=== PATIENT | female | born 1975 | race Caucasian/White ===

== ENCOUNTER 2019-02-09 11:24 | Emergency (ER) | payer BC, OTHER ==
[2019-02-09 11:38] VITALS: TEMP 98.1
--- NOTE | 2019-02-09 11:57 | PDOC ---
History of Present Illness - General Chief Complaint: Head/Neck problem Stated Complaint: HEADACHE/RIGHT ARM PAIN/NECK Time Seen by Provider: 02/09/19 11:57 - History of Present Illness Initial Comments: 02/09/19 12:15 43 year old woman with a history of prior headaches and HTN who presents with headache and shoulder pain for 2 weeks. The patient denies any nausea, vomiting , visual symptoms, worsening of headache with loud noises or bright lights. The patient has been taking Tylenol for symptom relief. The patient presents because of worsening symptoms for 3 days. SHe reports she had a 30min episode of R shoulder numbness that self resolved and was not associated with weakness or any other symptoms. ROS GENERAL/CONSTITUTIONAL: No fever or chills. No weakness. HEAD, EYES, EARS, NOSE AND THROAT: No change in vision. No ear pain or discharge. No sore throat. CARDIOVASCULAR: No chest pain or shortness of breath RESPIRATORY: No cough, wheezing, or hemoptysis. GASTROINTESTINAL: No nausea, vomiting, diarrhea or constipation. GENITOURINARY: No dysuria, frequency, or change in urination. MUSCULOSKELETAL: + joint or muscle swelling or pain. No neck or back pain. SKIN: No rash NEUROLOGIC: + headache, No vertigo, loss of consciousness, or change in strength /sensation. PE GENERAL: Awake, alert, and fully oriented, in no acute distress HEAD: No signs of trauma, normocephalic, atraumatic EYES: PERRLA, EOMI, sclera anicteric, conjunctiva clear ENT: oropharynx clear without exudates. Moist mucosa NECK: Normal ROM, supple LUNGS: No distress, speaks full sentences, clear to auscultation bilaterally HEART: Regular rate and rhythm, normal S1 and S2, no murmurs, rubs or gallops, peripheral pulses normal and equal bilaterally. ABDOMEN: Soft, nontender. No guarding, no rebound. No masses BACK: tenderness to trapezious muscles R > L EXTREMITIES : Normal inspection, Normal range of motion, no edema. No clubbing or cyanosis. NEUROLOGICAL: Cranial nerves II through XII grossly intact. Normal speech, normal gait, no focal sensorimotor deficits SKIN: Warm, Dry, normal turgor, no rashes or lesions noted MDM DDX including but not limited to: migraine msk ED Course: Patient denies taking medications regularly, however records show enalapril and noncompliance may explain elevated bp will dose home meds cbc, cmp, ua,upreg treat symptomatically Lulu De La O, PGY2 Emergency Medicine Past History - Past Medical History Allergies/Adverse Reactions: Allergies Allergy/AdvReac Type Severity Reaction Status Date / Time No Known Allergies Allergy Verified 02/09/19 11:29 Home Medications: Ambulatory Orders NK [No Known Home Medication] 02/09/19 - Surgical History Abdominal Surgery: Yes (myomectomy) - Immunization History Immunization Up to Date: Yes - Psycho Social/Smoking Cessation Hx Smoking Status: Yes Smoking History: Unknown if ever smoked Have you smoked in the past 12 months: No Number of Cigarettes Smoked Daily: 0 Hx Alcohol Use: No Drug/Substance Use Hx: No Substance Use Type: None *Physical Exam - Vital Signs Last Vital Signs Temp Pulse Resp BP Pulse Ox 98.1 F 113 H 16 190/109 H 100 02/09/19 11:29 02/09/19 11:29 02/09/19 11:29 02/09/19 11:29 02/09/19 11:29 ED Treatment Course - LABORATORY CBC & Chemistry Diagram: 02/09/19 12:43 02/09/19 12:43 Discharge - Discharge Information Problems reviewed: Yes Clinical Impression/Diagnosis: Headache, Muscle pain Disposition: HOME - Admission No - Follow up/Referral Referrals: Katheryn Wright MD [Primary Care Provider] - Anson Richmond MD, FAANS [Staff Physician] - - Patient Discharge Instructions Patient Printed Discharge Instructions: DI for Headache, DI for Muscle Strain Additional Instructions: You were seen for headache and muscle pain You need to take your blood pressure medication which has been prescribed to you You should follow up with your Family Doctor for further blood pressure medication You have been prescribed blood pressure medications and muscle relaxants Use epsom salt bath and soak for muscle pain. You have a referral for neurology if your symptoms do not improve Return to the ED if you have worsening symptoms, headache, fevers, nausea or vomiting or any other concerning symptoms. - Post Discharge Activity
[2019-02-09] MEDS ORDERED: LIDOCAINE 5% TOPICAL PATCH TP ONE (12:10)
[2019-02-09] MEDS ORDERED: ACETAMINOPHEN 1000 MG/100 ML VIAL (NON FORMULARY) IVPB ONE (12:10)
[2019-02-09] MEDS ORDERED: METOCLOPRAMIDE HCL INJECTION 10 MG/2 ML VIAL IVPUSH ONE (12:10)
--- NOTE | 2019-02-09 12:12 | PDOC ---
Attending Attestation - Resident Resident Name: Lulu De La O - ED Attending Attestation I have performed the following: I have examined & evaluated the patient, The case was reviewed & discussed with the resident, I agree w/resident's findings & plan, Exceptions are as noted - HPI HPI: 02/09/19 13:00 43yo female with hx of headaches - never seen neurology states malagon intermittently x 3 weeks assoc with 2 weeks of neck pain. States she turned to talk with her 2 weeks ago and felt her neck instantly develop pain. States she feels her muscles hurt and she can't turn her neck without pain. Pt denies midline pain. States yesterday she felt the pain down her R arm when she would turn her neck. Pt with parapsinal ttp along scalene muscles on the R and the trapezius muscle on the R. Also states a malagon that feels like a band around her head. Has taken tylenol at home with 30-45 min of relief. Pt denies muscle weakness. No blurred vision, no change in vision. No paresthesias. Pt denies cp. States she does not have known htn - but bp is elevated today. States she has never taken vasotec in the past. 02/09/19 13:04 Pt has had a hysterectomy in the past. - Physicial Exam PE: 02/09/19 13:04 gen: aaox3, uncomfortable, cannot turn her head to the Right, in pain heent: EOMI, MMM neck: no midline ttp, R parapsinal ttp, R trapezius ttp, R scalene ttp that reproduces her pain heart: +s1s2 reg lungs: cta b/l abd: soft, obese, nt/nd Ext: no c/c/e, muscle strength UE and LE neuro: cn ii-xii grossly intact, muscle strength 5/5 ue and le, ambulated with a steady gait, sensation intact - Medical Decision Making 02/09/19 13:11 a/p: 43yo female with R parapsinal neck pain and malagon x 2-3 weeks -no new focal neuro findings -suspect muscle spasm causing neck pain and tension malagon -will send labs given pt hypertensive, but suspect bp elevated secondary to acute pain -will obtain ekg -will medicate for pain and muscle spasm, will monitor and reassess 02/09/19 13:32 pt states feeling some pain relief upreg neg added toradol and robaxin renal function normal bp improving with pain control 02/09/19 14:23 bp improving pain improving 02/09/19 14:55 pt ambulatory without distress feels better FROM of the cervical spine stable for dc to home malagon resolved bp improved Heart Score/ECG Review - ECG Intrepretation Comment:: 02/09/19 13:30 sinus at 81, nl axis, nl interval, no acute st/t wave findings
[2019-02-09] MEDS ORDERED: SODIUM CHLORIDE 1,000 ML IV SCH (12:15)
[2019-02-09] MEDS ORDERED: ENALAPRIL MALEATE 2.5 MG TABLET (FP) PO ONE (12:16)
[2019-02-09] MEDS ORDERED: METOCLOPRAMIDE HCL INJECTION 10 MG/2 ML VIAL ONE (12:35)
[2019-02-09] MEDS ORDERED: ENALAPRIL MALEATE 5 MG TABLET (FP) ONE (12:35)
[2019-02-09] MEDS ORDERED: ACETAMINOPHEN INJECTION 100 ML IVPB ONE (12:36)
[2019-02-09] MEDS ORDERED: LIDOCAINE 5% TOPICAL PATCH ONE (12:57)
[2019-02-09 13:10] LABS: ALBUMIN 3.8 g/dl (3.4-5.0); BILIRUBIN,TOTAL 0.3 mg/dL (0.2-1); BLOOD UREA NITROGEN 8.6 mg/dL (7-18); CALCIUM 9.1 mg/dL (8.5-10.1); CREATININE 0.7 mg/dL (0.55-1.3); POTASSIUM 3.9 mmol/L (3.5-5.1); TOT PROT 7.8 g/dl (6.4-8.2)
[2019-02-09] MEDS ORDERED: METHOCARBAMOL 500 MG TABLET PO ONE (13:13)
[2019-02-09] MEDS ORDERED: KETOROLAC TROMETHAMINE 30 MG/1 ML VIAL IVPUSH ONE (13:13)
[2019-02-09 13:17] LABS: BASO % 0.8 % (0-2.0); EOS % 1.4 % (0-4.5); HEMATOCRIT 40.6 % (32.4-45.2); HEMOGLOBIN 14.1 GM/dL (10.7-15.3); LYMPH % 25.6 % (8-40); MCH 30.3 pg (25.7-33.7); MCHC 34.7 g/dl (32.0-36.0); MEAN CELL VOLUME 87.3 fl (80-96); MONO % 6.2 % (3.8-10.2); RBC 4.65 M/mm3 (3.60-5.2)
[2019-02-09] MEDS ORDERED: METHOCARBAMOL 500 MG TABLET ONE (13:56)
[2019-02-09] MEDS ORDERED: KETOROLAC TROMETHAMINE 30 MG/1 ML VIAL ONE (13:56)
[2019-02-09 14:15] VITALS: BP 154/91; PULSE 87
[2019-02-09 15:51] LABS: WHITE BLOOD COUNT 13.5 K/mm3 (4.0-10.0)
[2019-02-09 15:52] LABS: PLATELET ESTIMATE ADEQUATE
[2019-02-09] MEDS ORDERED: LIDOCAINE PATCH REMOVAL MC SCH (22:00)
--- NOTE | 2019-02-11 10:25 | EKG ---
Test Reason : Blood Pressure : / mmHG Vent. Rate : 081 BPM Atrial Rate : 081 BPM P-R Int : 170 ms QRS Dur : 082 ms QT Int : 396 ms P-R-T Axes : 030 012 045 degrees QTc Int : 460 ms NORMAL SINUS RHYTHM NORMAL ECG WHEN COMPARED WITH ECG OF 07-SEP-2015 01:24, NO SIGNIFICANT CHANGE WAS FOUND Confirmed by YUNG CALVERT MD ([id number]) on 02/11/2019 10:24:35 AM Referred By: Confirmed By:YUNG CALVERT MD
== END 2019-02-09 15:14 | disposition home or self-care (01) ==
LOC: JER 11:24
PROC: 3E033NZ Introduction of Analgesics, Hypnotics, Sedatives into Peripheral Vein, Percutaneous Approach (ICD-10-PCS; principal; 2019-02-09)
PROC: 3E0333Z Introduction of Anti-inflammatory into Peripheral Vein, Percutaneous Approach (ICD-10-PCS; 2019-02-09)
PROC: 3E033GC Introduction of Other Therapeutic Substance into Peripheral Vein, Percutaneous Approach (ICD-10-PCS; 2019-02-09)
DX: R51 Headache (principal); M79.18 Myalgia, other site; I10 Essential (primary) hypertension
CPT/HCPCS: 36415; 80053; 84703; 85025; 93005; 93010; 99282-25; J0131; J7030

== ENCOUNTER 2021-04-11 18:25 | Emergency (ER) | payer BC, OTHER ==
[2021-04-11 19:28] VITALS: TEMP 98.3; BMI 36.8
[2021-04-11] MEDS ORDERED: morphine CARPU-JECT 4 MG/1 ML DISP.SYRIN IVPUSH ONE (20:50)
[2021-04-11 20:59] LABS: BASO % 0.6 % (0-2.0); EOS % 1.4 % (0-4.5); HEMATOCRIT 40.1 % (32.4-45.2); HEMOGLOBIN 13.3 GM/dL (10.7-15.3); LYMPH % 27.4 % (8-40); MCH 28.7 pg (25.7-33.7); MCHC 33.2 g/dl (32.0-36.0); MEAN CELL VOLUME 86.3 fl (80-96); MEAN PLT VOLUME 9.4 fl (7.5-11.1); MONO % 6.7 % (3.8-10.2); NEUT % 63.9 % (42.8-82.8); PLATELET COUNT 307 10^3/uL (134-434); RBC 4.65 M/mm3 (3.60-5.2); RDW 12.7 % (11.6-15.6); WHITE BLOOD COUNT 11.5 K/mm3 (4.0-10.0)
[2021-04-11 21:11] LABS: INR 1.01 (0.83-1.09); PROTHROMBIN TIME (PATIENT) 11.3 SEC (9.7-13.0)
[2021-04-11 21:14] LABS: ACTIVATED PTT 28.7 SECONDS (25.2-36.5)
[2021-04-11] MEDS ORDERED: morphine SULFATE 4 MG/ML VIAL ONE (21:14)
[2021-04-11 21:48] LABS: ALBUMIN 3.9 g/dl (3.4-5.0); CALCIUM 8.9 mg/dL (8.5-10.1)
[2021-04-11 21:49] LABS: BLOOD UREA NITROGEN 9.4 mg/dL (7-18)
[2021-04-11 21:52] LABS: CREATININE 0.7 mg/dL (0.55-1.3)
[2021-04-11 21:52] LABS: EPI CELLS >36 /uL (0-25.1); HYALINE CASTS 2 /uL (0-3.1); URINE APPEARANCE CLOUDY; URINE BACTERIA 1064 /uL (0-1359); URINE BILIRUBIN NEGATIVE (NEGATIVE); URINE COLOR YELLOW; URINE GLUCOSE (UA) NEGATIVE (NEGATIVE); URINE KETONE NEGATIVE (NEGATIVE); URINE LEUK ESTERASE TRACE (NEGATIVE); URINE NITRITE NEGATIVE (NEGATIVE); URINE PROTEIN NEGATIVE (NEGATIVE); URINE RBC 66 /uL (0-23.9); URINE UROBILINOGEN 0.2 mg/dL (0.2-1.0); URINE WBC 32 /uL (0-25.8)
[2021-04-11 21:53] LABS: BILIRUBIN,TOTAL 0.2 mg/dL (0.2-1); TOT PROT 7.8 g/dl (6.4-8.2)
[2021-04-11 22:27] LABS: HCG,QUALITATIVE URINE Negative
[2021-04-12 00:16] LABS: EPI CELLS >36 /uL (0-25.1); HYALINE CASTS 3 /uL (0-3.1); PH,URINE 5.5 (5.0-8.0); URINE APPEARANCE CLEAR; URINE BACTERIA 722 /uL (0-1359); URINE BILIRUBIN NEGATIVE (NEGATIVE); URINE COLOR YELLOW; URINE GLUCOSE (UA) NEGATIVE (NEGATIVE); URINE KETONE NEGATIVE (NEGATIVE); URINE LEUK ESTERASE NEGATIVE (NEGATIVE); URINE NITRITE NEGATIVE (NEGATIVE); URINE PROTEIN NEGATIVE (NEGATIVE); URINE RBC 16 /uL (0-23.9); URINE UROBILINOGEN 0.2 mg/dL (0.2-1.0)
[2021-04-12 01:25] VITALS: BP 154/95; PULSE 91
== END 2021-04-12 01:26 | disposition home or self-care (01) ==
LOC: JER 18:25
PROC: 3E033GC Introduction of Other Therapeutic Substance into Peripheral Vein, Percutaneous Approach (ICD-10-PCS; principal; 2021-04-11)
DX: R10.31 Right lower quadrant pain (principal)
CPT/HCPCS: 36415; 74177-TC; 76705-TC; 80053; 81003; 83690; 84703; 85025; 85610; 85730; 86850; 86900; 86901; 93005; 93010; 99285-25; C9803; Q9967; U0003; U0005